=== PATIENT | male | born 1990 | race Caucasian/White ===

== ENCOUNTER 2024-03-20 15:44 | Emergency (ER) | payer OTHER ==
[~2024-03-20] VITALS: Ht 190.5 cm; Wt 73.6 kg
[2024-03-20] MEDS ORDERED: DIPHTH,PERTUSS(ACELL),TET VAC 0.5 ML SYRINGE IM ONE (16:15)
[2024-03-20 18:43] VITALS: BP 112/70
== END 2024-03-20 18:45 | disposition home or self-care (01) ==
LOC: ED 15:44
DX: S01.112A Laceration without foreign body of left eyelid and periocular area, initial encounter (principal); S01.81XA Laceration without foreign body of other part of head, initial encounter; V48.5XXA Car driver injured in noncollision transport accident in traffic accident, initial encounter; Z91.030 Bee allergy status
CPT/HCPCS: 12011; 36415; 70450; 70486; 72125; 90471; 90715; 99284-25; G0480